=== PATIENT | female | born 1965 | race Caucasian/White ===

== ENCOUNTER → 2016-10-24 | Outpatient (CLI) | payer BC ==
[2016-10-24 19:50] LABS: Basophils # (A) 0.1 k/uL (0-0.2); Basophils % (A) 1 %; CHCM 31.3; Eosinophils # (A) 0.1 k/uL (0-0.7); Eosinophils % (A) 1 %; HCT 43.2 % (34.0-46.0); HDW 2.39; HGB 13.7 gm/dL (11.4-16.0); Hypochromasia Slight; Luc # (Auto) 0.23; Luc % (Auto) 3; Lymphocytes % (A) 26 %; MCH 28.4 pg (25.0-35.0); MCHC 31.7 g/dL (31.0-37.0); MCV 89.6 fL (80.0-100.0); Mean Platelet Volume 7.8; Monocytes # (A) 0.5 k/uL (0-1.0); Monocytes % (A) 6 %; Neutrophils # (A) 4.8 k/uL (1.3-7.7); Neutrophils % (A) 63 %; RBC 4.82 m/uL (3.80-5.40); RDW 13.6 % (11.5-15.5); WBC 7.6 k/uL (3.8-10.6); WBC (Perox) 8.32
[2016-10-24 20:03] LABS: ALT 52 U/L (9-52); AST 44 U/L (14-36); Alkaline Phosphatase 52 U/L (38-126); Anion Gap 12 mmol/L; Blood Urea Nitrogen 13 mg/dL (7-17); Carbon Dioxide 27 mmol/L (22-30); Chloride 101 mmol/L (98-107); Cholesterol 280 mg/dL (<200); Glucose 84 mg/dL (74-99); HDL Cholesterol 77 mg/dL (40-60); Non-African American GFR(MDRD) >60 (>60 ml/min/1.73 sqM); Potassium 4.8 mmol/L (3.5-5.1); Sodium 140 mmol/L (137-145); Total Bilirubin 0.7 mg/dL (0.2-1.3); Total Protein 7.5 g/dL (6.3-8.2); Triglycerides 193 mg/dL (<150)
== END ==
LOC: MMGSC 10:40
PROVIDERS: ATTEND Family Medicine
DX: Z00.00 Encounter for general adult medical examination without abnormal findings (principal); I10 Essential (primary) hypertension
CPT/HCPCS: 36415; 80053; 80061; 84439; 84443; 85025

== ENCOUNTER → 2017-01-22 | Outpatient (CLI) | payer BC ==
[2017-01-22 19:25] LABS: % Iron Saturation 6.8 % (20-50)
== END | disposition home or self-care (01) ==
LOC: MMGSC 15:07
PROVIDERS: ATTEND Family Medicine
DX: R53.83 Other fatigue (principal)
CPT/HCPCS: 36415; 82728; 83540; 83550

== ENCOUNTER → 2017-01-23 | Outpatient (CLI) | payer BC ==
[2017-01-28 15:10] LABS: Anabasine Urine <2.0 ng/mL (<2.0)
== END | disposition home or self-care (01) ==
LOC: MMGSC 16:34
PROVIDERS: ATTEND Family Medicine
DX: Z13.9 Encounter for screening, unspecified (principal)
CPT/HCPCS: 80323

== ENCOUNTER → 2018-09-17 | Outpatient (CLI) | payer BC ==
--- NOTE | 2018-09-17 11:01 | CT ---
EXAMINATION TYPE: CT chest w con DATE OF EXAM: 09/17/2018 COMPARISON: None HISTORY: 53-year-old female Lung nodule TECHNIQUE: Contiguous axial scanning of the chest after the administration of 100 ml mL of Isovue 300 . Coronal/sagittal reconstructions performed. CT DLP: 461.50mGycm. Automatic exposure control utilized for a dose reduction. FINDINGS: Heart normal size without pericardial effusion. Aorta normal caliber with a bovine configuration to the aortic arch. A 2.1 x 1.3 cm low-density nodule right paramedian prevertebral region just above the level of the ca shannan along the right posterolateral margin of the esophagus, refer to axial image 17 and coronal imag e 60. No thoracic lymphadenopathy by CT size criteria. No consolidation or pleural effusion. Anterior splenules with severe hepatic steatosis. Areas of focal fatty sparing along the gallbladder fossa. Bones: Anterior endplate spondylosis mid to lower thoracic spine. IMPRESSION: 1. A 2.1 x 1.3 cm low-density prevertebral/right paravertebral nodule along the right posterolateral margin of the esophagus just above the level of the cassie. 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 Consider contrast enh anced chest MRI to further evaluate. 2. Hepatic steatosis.
== END | disposition home or self-care (01) ==
LOC: RADCTMAIN 09:09
PROVIDERS: ATTEND Family Medicine
DX: R91.1 Solitary pulmonary nodule (principal)
CPT/HCPCS: 71260; Q9967

== ENCOUNTER → 2018-10-01 | Outpatient (CLI) | payer BC ==
[2018-10-01 08:48] LABS: Blood Urea Nitrogen 11 mg/dL (7-17)
--- NOTE | 2018-10-01 15:21 | MR ---
MR chest with and without contrast HISTORY: Abnormal CT chest, other specified diseases of esophagus Multiplanar multisequence and postcontrast images obtained through the chest following 9 cc Gadavist IV. The paraspinal soft tissue mass noted on CT of 09/17/2018 shows associated hyperintensity and T2-weigh neymar sequences and measures approximately 2.3 cm in cephalad to caudal dimension by 18 mm in transvers e dimension by 14 mm in anterior posterior dimension and is in close apposition to the lateral margin of the esophagus, posterior to the trachea. T1 signal is low, no significant enhancement. No evident adenopathy. No ascites or pleural effusion, no pericardial effusion. Heart size is normal. 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
== END | disposition home or self-care (01) ==
LOC: RADMRIMAIN 08:12
PROVIDERS: ATTEND Family Medicine
DX: K22.8 Other specified diseases of esophagus (principal)
CPT/HCPCS: 82565; 84520; 71552; 36415; A9585

== ENCOUNTER → 2019-01-21 | Outpatient (CLI) | payer BC ==
--- NOTE | 2019-01-21 09:57 | MR ---
EXAMINATION TYPE: MR shoulder RT wo con DATE OF EXAM: 01/21/2019 COMPARISON: Plain film 01/13/2019 HISTORY: Right shoulder pain TECHNIQUE: Multiplanar, multisequence imaging of the right shoulder is performed without contrast. FINDINGS: Rotator Cuff: There is abnormal increased signal associated with the rotator cuff, abnormal thickenin g. Along the anterior margin there is a partial rotator cuff full-thickness tear involving the supras pinatus tendon. There is minimal retraction. Fluid signal present in the subacromial subdeltoid bursa . Acromioclavicular Joint: Arthropathy change is present and fluid signal is present in the subacromial subdeltoid bursa. Suspect there is a distal acromial spur Glenohumeral Joint: Maintained Labrum: The labrum appears grossly intact given limitation of non-arthrogram study. Biceps Tendon: The long head of biceps is in normal location within bicipital groove. Small amount of fluid signal present along the long head of biceps tendon Bone marrow signal: Pseudocysts are present within the humeral head. Other: Small joint effusion present. IMPRESSION: Supraspinatus tendon tear as described. Correlate for impingement.
== END | disposition home or self-care (01) ==
LOC: RADMRIMAIN 08:35
PROVIDERS: ATTEND Orthopaedic Surgery
DX: M75.101 Unspecified rotator cuff tear or rupture of right shoulder, not specified as traumatic (principal)

== ENCOUNTER → 2019-02-26 | Outpatient (CLI) | payer BC ==
[2019-02-26 17:13] LABS: Basophils # (A) 0.1 k/uL (0-0.2); Basophils % (A) 1 %; Eosinophils # (A) 0.4 k/uL (0-0.7); Eosinophils % (A) 5 %; HCT 35.7 % (34.0-46.0); HGB 11.1 gm/dL (11.4-16.0); Hypochromasia Slight; Lymphocytes # (A) 2.1 k/uL (1.0-4.8); Lymphocytes % (A) 25 %; MCH 25.5 pg (25.0-35.0); MCHC 31.1 g/dL (31.0-37.0); Mean Platelet Volume 6.8; Monocytes # (A) 0.5 k/uL (0-1.0); Monocytes % (A) 6 %; Neutrophils # (A) 5.1 k/uL (1.3-7.7); Neutrophils % (A) 60 %; Platelet Count 314 k/uL (150-450); RBC 4.36 m/uL (3.80-5.40); RDW 15.8 % (11.5-15.5); WBC 8.5 k/uL (3.8-10.6)
[2019-02-26 17:16] LABS: Potassium 4.4 mmol/L (3.5-5.1)
== END | disposition home or self-care (01) ==
LOC: LABPAT 16:44 → LABWHC1 16:44
PROVIDERS: ATTEND Orthopaedic Surgery
DX: Z01.818 Encounter for other preprocedural examination (principal); Z01.812 Encounter for preprocedural laboratory examination; M75.41 Impingement syndrome of right shoulder
CPT/HCPCS: 36415; 80051; 85025; 93005

== ENCOUNTER 2019-03-04 05:53 | Day surgery (SDC) | payer BC ==
[2019-02-27 12:32] VITALS: BMI 34.1
--- NOTE | 2019-03-03 14:04 | HP ---
HISTORY AND PHYSICAL DATE OF SURGERY: 03/04/2019 Delmi Storey is a 53-year-old patient seen with progressive right shoulder pain. We discussed treatment options with her. She elected to proceed with right shoulder arthroscopy. Consent regarding procedure was obtained. PAST MEDICAL HISTORY: Hypertension, gastroesophageal reflux disease. PAST SURGICAL HISTORY: Noncontributory. MEDICATIONS: 1. Dyazide. 2. Lisinopril. 3. Prilosec. 4. Zoloft. ALLERGIES: NAPROSYN. SOCIAL HISTORY: She denies current tobacco use. PHYSICAL EVALUATION OF THE RIGHT SHOULDER: Flexion 110 degrees, abduction 80 degrees, external rotation is 50 degrees with pain and weakness. Tenderness along the anterolateral acromion and acromioclavicular joint impingement signs is positive at 80 degrees, distal neurovascular exam is intact. Drop- arm sign is positive. RADIOGRAPHS OF THE RIGHT SHOULDER: Revealed a type 2 anterior acromion. Cystic changes of the greater tuberosity. A right shoulder MRI revealed rotator cuff tear. IMPRESSION: 1. Right shoulder impingement with rotator cuff tear. 2. Hypertension. 3. Gastroesophageal reflux disease. PLAN: Right shoulder arthroscopy with subacromial decompression probable arthroscopic rotator cuff repair and debridement. MMODL / IJN: [id number] /
[2019-03-04] MEDS ORDERED: LACTATED RINGERS 1,000 ML IV SCH (05:58)
[2019-03-04] MEDS ORDERED: LIDOCAINE 1% 20 ML VIAL (10MG/ML) FOR IV START INTRADERMA PRN (05:58)
[2019-03-04] MEDS ORDERED: ONDANSETRON 4 MG/2 ML VIAL IVP PRN (05:58)
[2019-03-04] MEDS ORDERED: ONDANSETRON 4 MG/2 ML VIAL IVP ONE (05:58)
[2019-03-04] MEDS ORDERED: DEXAMETHASONE SOD PHOSPHATE 10 MG/ML 1 ML VIAL IV ONE (05:58)
[2019-03-04] MEDS ORDERED: HYDROmorphone 0.5 MG/0.5 ML SYRINGE IVP PRN (05:58)
[2019-03-04] MEDS ORDERED: MIDAZOLAM (PF) 2 MG/2 ML VIAL IVP ONE (07:01)
[2019-03-04] MEDS ORDERED: fentaNYL (PF) 50 MCG/ML 2 ML AMP IVP ONE (07:02)
[2019-03-04] MEDS ORDERED: ROPIVACAINE 5 MG/ML 30 ML VIAL ONE (07:21)
[2019-03-04] MEDS ORDERED: MIDAZOLAM 2 MG/2 ML VIAL ONE (07:21)
[2019-03-04] MEDS ORDERED: fentaNYL (PF) 50 MCG/ML 2 ML AMP ONE (07:21)
[2019-03-04] MEDS ORDERED: PHENYLEPHRINE-0.9% NACL SYG 1 MG/10 ML SYRINGE ONE (07:21)
[2019-03-04] MEDS ORDERED: GLYCOPYRROLATE 0.2 MG/ML 2 ML VIAL ONE (07:21)
[2019-03-04] MEDS ORDERED: LIDOCAINE 1% INJ 10MG/ML (20 ML MDV) ONE (07:21)
[2019-03-04] MEDS ORDERED: SUCCINYLCHOLINE CHLORIDE 100 MG/5 ML SYR IV ONE (07:21)
[2019-03-04] MEDS ORDERED: PROPOFOL 10 MG/ML 20 ML VIAL IV ONE (07:21)
[2019-03-04] MEDS ORDERED: NEOSTIGMINE 1 MG/ML 10 ML VIAL ONE (07:21)
[2019-03-04] MEDS ORDERED: ROCURONIUM BROMIDE 10 MG/ML 10 ML VIAL IV ONE (07:21)
--- NOTE | 2019-03-04 07:50 | P.ANPRN ---
Procedure Note - Anesthesia - Nerve Block Performed Right Interscalene Single Time Out Performed: Yes Date of Procedure: 03/04/19 Procedure Start Time: 07:00 Location of Patient Procedure: PreOp Indication: Acute Post-Operative Pain, Requested by physician Specifically requested for management of pain by DrMarlo: Ollie Smalls Sedation Type: Sedate with meaningful contact maintained Preparation: Sterile Prep Position: Supine Catheter: None Needle Types: Pajunk Needle Gauge: 21 Technique: Ultrasound Injectate: 0.5% Ropivacaine (see comment for volume) (20cc) Blood Aspirated: No Pain Paresthesia on Injection Noted: No Resistance on Injection: Normal Events: Uneventful and Well Tolerated
[2019-03-04] MEDS ORDERED: LACTATED RINGERS 1,000 ML IV ONE (09:03)
[2019-03-04 09:31] VITALS: RESP 16; TEMP 97
--- NOTE | 2019-03-04 09:33 | P.OP ---
Date of Procedure: 03/04/19 Preoperative Diagnosis: Right shoulder impingement Postoperative Diagnosis: 1. Right shoulder rotator cuff tear 2. Right shoulder impingement 3. Right shoulder acromioclavicular joint osteoarthritis 4. Right shoulder partial long head biceps tendon tear 5. Right shoulder superficial labral tear Procedure(s) Performed: 1. Right shoulder arthroscopic rotator cuff repair 2. Right shoulder arthroscopic subacromial decompression 3. Right shoulder arthroscopic Arely procedure 4. Right shoulder arthroscopic biceps tenotomy 5. Right shoulder arthroscopic debridement labral tear Implants: 4Arthrex 4.75 swivel lock anchors Anesthesia: GETA, regional (Interscalene block) Surgeon: Ollie Smalls Press Box Custodian #1: Ean Sims Estimated Blood Loss (ml): 9 Pathology: none sent Condition: stable Disposition: PACU Indications for Procedure: 53-year-old patient seen with progressive right shoulder pain. After having treatment options discussed, she elected to proceed with arthroscopy. Operative Findings: See description of procedure Description of Procedure: Patient underwent an interscalene block by department of anesthesia for postoperative pain management. The patient was then taken to the operative suite. The patient underwent a general anesthetic by the department of anesthesia. The patient was placed into a lateral position and secured. There was appropriate padding of the bony prominence. Right shoulder was then prepped and draped in normal sterile orthopedic fashion. We placed the extremity in 10 pounds of longitudinal traction. A posterior incision was now made for a posterior working portal site. The trocar and cannula were inserted into the glenohumeral joint. Arthroscopy was initiated. Spinal needle was now inserted anteriorly, to ascertain the anterior working portal site. An incision was now made in that area, a trocar was inserted followed by a probe. There was partial tearing and hyperemia long head biceps tendon. There was some superficial tearing of the anterior labrum. There was no chondromalacia present. I couldn't visualize a rotator cuff tear from glenohumeral side. I performed a arthroscopic biceps tenotomy. I debrided the superficial labral tear down to stable tissue. The residual labrum was stable. Instruments were now removed from glenohumeral joint. Utilizing the posterior working portal site, the trocar and cannula were inserted into the subacromial space. Arthroscopy initiated. I made an incision 2 fingerbreadths lateral to the acromion. I introduced my trocar followed by my ArthroCare ablator. I now began ablating thick subacromial bursal tissue, which exposed the undersurface of the anterior acromion. There was diminished subacromial space. There was a very prominent anterior acromion. A motorized bur was introduced and a subacromial decompression was performed. I also excised some osteophytes off the inferior aspect of the distal clavicle. The AC joint was visualized and noted to be fairly arthritic. The motorized bur was introduced in the anterior portal site and a Arely procedure was performed without difficulty, decompressing the AC joint nicely. I turned my attention to the rotator cuff. There was a 2.5 cm rotator cuff tear. I debrided the margins getting down to stable tendon tissue. I introduced my motorized bur and abraded the footprint area, getting some petechial bleeding. I now made an accessory portal site off the lateral aspect of the acromion. I punched 2 holes medial for medial row fixation with the assistance of Gibran AUSTIN carefully tapping the punch with a mallet as I held the punch and the camera. I now introduced both anchors into the pre-punched holes and Gibran AUSTIN tapped them with the mallet as I held anchors and the camera. Gibran AUSTIN now screwed the anchors in place a while I held the anchor guide and camera. All 8 limbs of suture were now passed through good bites of rotator cuff tendon. I now punched 2 holes for lateral row fixation again I held the punch and camera while Gibran AUSTIN used a mallet to tap in the punch. We now passed sutures through both anchors and individually I introduced the anchors into the pre-punch holes I held the anchor guide in position with one hand holding the camera with the other hand while Gibran AUSTIN tensioned the sutures and screwed in the anchors one at a time. All residual suture limbs were now clipped. We had good compression of the tendon along the entire footprint. I injected 1 mL Renyte intra-articular. Instruments now removed from the portal sites. All portal sites were approximated with nylon suture. Sterile dressings were applied followed by a shoulder immobilizer. Ean AUSTIN assisted in this complex case. The patient was awakened, transferred to a bed, and taken to recovery in stable condition.
[2019-03-04 11:13] VITALS: BP 122/81; PULSE 68
== END 2019-03-04 11:39 | disposition home or self-care (01) ==
LOC: OR 05:53
PROVIDERS: ATTEND Orthopaedic Surgery
DX: M75.101 Unspecified rotator cuff tear or rupture of right shoulder, not specified as traumatic (principal); M25.811 Other specified joint disorders, right shoulder; M19.011 Primary osteoarthritis, right shoulder; S46.111A Strain of muscle, fascia and tendon of long head of biceps, right arm, initial encounter; S43.491A Other sprain of right shoulder joint, initial encounter; X58.XXXA Exposure to other specified factors, initial encounter; M25.711 Osteophyte, right shoulder; I10 Essential (primary) hypertension; F39 Unspecified mood [affective] disorder; K21.9 Gastro-esophageal reflux disease without esophagitis; Z79.899 Other long term (current) drug therapy; Z79.891 Long term (current) use of opiate analgesic; Z88.6 Allergy status to analgesic agent; Z87.891 Personal history of nicotine dependence
CPT/HCPCS: 29827; 29824; 29826; 64415; C1713 ×2; C1765; J2250 ×2; J1100; J2710; J2405; J2001; J3010; J2795; J2370; J0330; J2704

== ENCOUNTER → 2020-11-02 | Outpatient (CLI) | payer BC ==
--- NOTE | 2020-11-02 13:52 | US ---
EXAMINATION TYPE: US liver DATE OF EXAM: 11/02/2020 COMPARISON: NONE CLINICAL HISTORY: R94.5 Abnormal liver function. EXAM MEASUREMENTS: Liver Length: 17.4 cm Gallbladder Wall: 0.2 cm CBD: 0.4 cm Right Kidney: 11.6 x 3.7 x 6.0 cm Pancreas: visualized portions wnl Liver: difficult to penetrate, measures 17.4 cm. Gallbladder: No stones seen Evidence for sonographic Evans's sign: No CBD: wnl Right Kidney: No hydronephrosis or masses seen Patient states lump mid abdomen and scanning was performed directly over with superficial and deep pr obe. There is a soft tissue density measuring 2.8 x 1.2 x 4.1 cm, that appears as lipoma. IMPRESSION: 1. Superficial isoechoic structure within the subcutaneous tissues may be a lipoma. No anterior abdom inal wall hernia is identified. 2. Hepatomegaly with mild fatty infiltration.
== END | disposition home or self-care (01) ==
LOC: RADUSWWP 06:59
PROVIDERS: ATTEND Family Medicine
DX: R16.0 Hepatomegaly, not elsewhere classified (principal); K76.0 Fatty (change of) liver, not elsewhere classified
CPT/HCPCS: 76705

== ENCOUNTER → 2021-02-27 | Outpatient (CLI) | payer BC ==
[2021-02-27 11:34] LABS: African American GFR (CKD) 82.8 (60.0-200.0); Albumin 4.6 g/dL (3.80-4.90); Albumin/Globulin Ratio 1.53 (1.60-3.17); BUN/Creat Ratio 12.22 Ratio (12.00-20.00); Calcium 10.1 mg/dL (8.7-10.3); Chol/HDL Ratio 5.33; LDL Cholesterol,Calculated 195.2 mg/dL (0.0-131.0); Non-African American GFR(CKD) 71.5 (60.0-200.0); Potassium 5.2 mmol/L (3.5-5.5); Total Bilirubin 0.5 mg/dL (0.2-1.2); Total Protein 7.6 g/dL (6.2-8.2); VLDL Calculation 38.8 mg/dL (5.00-40.00)
[2021-02-27 16:47] LABS: Urine Creatinine 89.8 mg/dL
== END | disposition home or self-care (01) ==
LOC: LABWHC1 08:22
PROVIDERS: ATTEND Family Medicine
DX: E78.2 Mixed hyperlipidemia (principal); E11.65 Type 2 diabetes mellitus with hyperglycemia; E55.9 Vitamin D deficiency, unspecified
CPT/HCPCS: 36415; 80053; 80061; 82043; 82306; 82570; 83036